=== PATIENT | male | born 1985 | race Caucasian/White ===

== ENCOUNTER 2017-11-26 00:33 | Emergency (ER) | payer SELFPAY, OTHER | END 2017-11-26 03:01 | disposition left against medical advice (07) | LOC: FTE 00:33 | DX: Z53.21 Procedure and treatment not carried out due to patient leaving prior to being seen by health care provider (principal) ==

== ENCOUNTER 2017-11-26 04:10 | Emergency (ER) | payer OTHER ==
[2017-11-26 09:16] LABS: AADO2 Arterial 14.6 mmHg (7.0-24.0); Allen Test ACCEPTAB; Arterial Base Excess 0 mmol/L (-3.0-3); Arterial Blood Gas Oxygen Sat 96.9 mmHG (95.0-98.0); Arterial COHb 0.3 % (0.0-3.0); Arterial Fraction of Oxyhgb 96.4 % (93.0-99.0); Arterial HCO3 23.9 mmol/L (22.0-26.0); Arterial MetHb 0.2 % (0.0-1.5); Arterial Total Hemglobin 15.3 g/dl (12.0-18.0); Arterial pCO2 36.6 mmhg (35-45); MODE ROOM AIR; Site Right Radial
== END 2017-11-26 09:48 | disposition home or self-care (01) ==
LOC: FTE 04:10
DX: R51 Headache (principal); Z77.098 Contact with and (suspected) exposure to other hazardous, chiefly nonmedicinal, chemicals
CPT/HCPCS: 36600; 82375; 82803; 99283